=== PATIENT | female | born 1985 | race Caucasian/White ===

== ENCOUNTER 2021-07-19 10:45 | Outpatient (CLI) | payer SELFPAY ==
[2021-07-19 10:53] VITALS: BP 118/62; PULSE 106; RESP 18; TEMP 36.8; O2SAT 96; BMI 36.6
[2021-07-19] MEDS: 0.9% Saline Lock 10 ML Syringe IV (11:03)
[2021-07-19 12:06] VITALS: BP 117/56; PULSE 99; RESP 16; TEMP 37.1; O2SAT 94
[2021-07-19 13:05] VITALS: BP 124/61; PULSE 103; RESP 16; TEMP 37.2; O2SAT 97
== END 2021-07-19 13:18 | disposition home or self-care (01) ==
LOC: MS3OUT 10:46 → MS3 10:47
PROVIDERS: Referring Provider Nurse Practitioner Acute Care; Visit Provider Nurse Practitioner Acute Care
DX: Z23 Encounter for immunization (principal); U07.1 COVID-19
CPT/HCPCS: J7050; M0245; Q0245; A4216